=== PATIENT | male | born 1950 | race Caucasian/White ===

== ENCOUNTER 2022-11-12 13:15 | Emergency (ER) | payer MEDICARE ==
[~2022-11-12 13:15] MED LIST: Iopamidol-370 76% 500 ML MDV (1 ML CHARGE) ONE
[2022-11-12] MEDS ORDERED: Morphine 4 MG/ML VIAL ONE (14:01)
[2022-11-12] MEDS ORDERED: Ondansetron PF 4 MG/2 ML Vial ONE (14:01)
[2022-11-12 14:13] LABS: #Basophils 0.1 thou/uL (0.0-0.2); #Eosinphils 0.1 thou/uL (0.0-0.7); #Monocytes 0.6 thou/uL (0.11-0.59); #Neutrophils 5.7 thou/uL (1.40-6.50); %Basophils 0.7 % (0.0-1.0); %Eosinophils 0.9 % (0.0-10.0); %Lymphocytes 15.6 % (21.0-51.0); %Monocytes 7.8 % (0.0-10.0); %Neutrophils 74.7 % (42.0-75.0); Hemoglobin 14.2 g/dL (14.0-18.0); Mean Corpuscular HGB CONC 36.6 g/dL (32.0-36.0); Mean Corpuscular Hemoglobin 32.7 pg (27.0-31.0); Mean Corpuscular Volume 89.4 fl (78.0-98.0); Mean Platelet Volume 10.7 fL (7.4-10.4); Platelet Count 288 10x3/uL (130-400); RBC Distribution Width 19.5 % (11.5-14.5); Red Blood Cell (RBC) Count 4.34 mill/uL (4.70-6.10); White Blood Cell (WBC) Count 7.7 10x3/uL (4.8-10.8)
[2022-11-12 14:25] LABS: Bacteria/HPF None Seen HPF (None Seen); Bilirubin 3+ (Negative); Blood, Urine Negative (Negative); CAUTI Indications for Culture Pelvic or flank pain; Clarity Clear (Clear); Glucose, Urine (Dipstick) Normal (Negative); Ketone, Urine Negative (Negative); Leukocyte Negative Leu/uL (Negative); Nitrite Negative (Negative); Protein, Urine (Dipstick) 30 mg/dL (Neg-Trace); RBC/HPF 0-3 HPF (0-3); Squamous Epithelial None Seen HPF (0-3); pH, Urine 6.5 (5.0-9.0)
[2022-11-12 14:30] LABS: Urine Culture Reflex No No
[2022-11-12 14:33] LABS: ALT (SGPT) 173 U/L (8-55); AST (SGOT) 180 U/L (5-34); Alkaline Phosphatase 1169 U/L (40-110); Anion Gap 2 mmol/L (10-20); BUN (Urea Nitrogen) 8 mg/dL (8.4-25.7); Bilirubin, Total 14.8 mg/dL (0.2-1.2); Calc. Creatinine Clearance 0 mL/min (70-130); Calcium 9.9 mg/dL (7.8-10.44); Carbon Dioxide 28 mmol/L (23-31); Chloride 99 mmol/L (98-107); Estimated GFR 99; Globulin 2.7 g/dL (2.4-3.5); Glucose 123 mg/dL (80-115); Potassium 3.4 mmol/L (3.5-5.1); Protein, Total 6.7 g/dL (5.8-8.1); Sodium 126 mmol/L (136-145)
[2022-11-12 14:39] LABS: ALT (SGPT) 168 U/L (8-55); AST (SGOT) 175 U/L (5-34); Albumin 3.8 g/dL (3.4-4.8); Alkaline Phosphatase 1114 U/L (40-110); Bilirubin, Total 14.1 mg/dL (0.2-1.2); Lipase 254 U/L (8-78); Protein, Total 7.1 g/dL (5.8-8.1)
[2022-11-12 14:45] LABS: Actual Bicarbonate (HCO3v) 25.4 mEq/L (22-28); Base Excess 0.2 mEq/L (-2.0 to +3.0); Calcium, Ionized (venous) 1.11 mmol/L (1.16-1.32); Chloride (VBG) 100 mmol/L (98-106); Hematocrit-VBG 43 % (42.0-52.0); Hemoglobin (Hb) 14.6 g/dL (12.6-17.4); Potassium (VBG) 3.98 mmol/L (3.70-5.30); Sodium 136.9 mmol/L (133-146); pH (venous) 7.385 (7.32-7.43)
[2022-11-12] MEDS ORDERED: Cefepime 1 GM VIAL ONE (16:11)
[2022-11-12] MEDS ORDERED: metroNIDAZOLE 500 MG/100 ML BAG ONE (16:11)
[2022-11-12 16:54] LABS: Bilirubin, Direct Greater than 10.0 mg/dL (0.1-0.3)
[2022-11-12] MEDS ORDERED: hydrALAZINE 20 MG/ML VIAL ONE (17:58)
== END 2022-11-12 19:03 | disposition short-term general hospital (02) ==
LOC: ERS 13:15
DX: K86.9 Disease of pancreas, unspecified (principal); R63.4 Abnormal weight loss; K83.1 Obstruction of bile duct; Z87.891 Personal history of nicotine dependence
CPT/HCPCS: 71045; 74177; 80053; 80076; 81001; 82805; 83605; 83690; 84484; 85025; 87040; 93005; J0360; 36415; 96361; 96365; 96375; J0692; J2270; J2405; Q9967

== ENCOUNTER 2022-12-23 05:37 | Day surgery (SDC) | payer MEDICARE ==
[2022-12-22 10:15] VITALS: BMI 19.2
[2022-12-23] MEDS ORDERED: Ketorolac Tromethamine 30 MG/ML VIAL ONE (06:44)
[2022-12-23] MEDS ORDERED: Acetaminophen 500 MG TAB ONE (06:44)
[2022-12-23] MEDS ORDERED: Bupivacaine 0.25% HCL 30 ML VIAL ONE (07:01)
[2022-12-23] MEDS ORDERED: EPINEPHrine 1 MG/ML AMP ONE (07:01)
[2022-12-23] MEDS ORDERED: Lidocaine 1% (PF) 30 ML VIAL ONE (07:02)
[2022-12-23] MEDS ORDERED: Propofol 500 MG/50 ML VIAL ONE (07:18)
[2022-12-23] MEDS ORDERED: Sodium Chloride 0.9% 100 ML ONE (07:35)
[2022-12-23] MEDS ORDERED: CEFAZOLIN 2 GM VIAL ONE (07:35)
[2022-12-23] MEDS ORDERED: PROPOFOL 200 MG/20 ML VIAL ONE (07:46)
[2022-12-23] MEDS ORDERED: Lidocaine 1% PF 5 ML VIAL ONE (07:46)
[2022-12-23] MEDS ORDERED: ePHEDrine Sulfate 50 MG/10 ML VIAL ONE (07:46)
[2022-12-23] MEDS ORDERED: PHENYLEPHRINE-NS 100 MCG/ML 10 ML SYRINGE ONE (07:46)
== END 2022-12-23 10:00 | disposition home or self-care (01) ==
LOC: SDC 05:37
PROVIDERS: ATTEND Specialist
PROC: 0JH63WZ Insertion of Totally Implantable Vascular Access Device into Chest Subcutaneous Tissue and Fascia, Percutaneous Approach (ICD-10-PCS; principal; 2022-12-23)
DX: C25.9 Malignant neoplasm of pancreas, unspecified (principal); I10 Essential (primary) hypertension; I48.91 Unspecified atrial fibrillation; Z79.899 Other long term (current) drug therapy; Z87.891 Personal history of nicotine dependence; Z79.01 Long term (current) use of anticoagulants; Z88.0 Allergy status to penicillin
CPT/HCPCS: 71045; C1788; J0171; J1642; J1885; J2001; J2704; J3490; S0020

== ENCOUNTER 2023-01-22 08:46 | Inpatient (IN) | payer MEDICARE ==
[2023-01-22] MEDS ORDERED: Ondansetron PF 4 MG/2 ML Vial ONE (09:33)
[2023-01-22 09:59] LABS: Hematocrit 36.2 % (42.0-52.0); Hemoglobin 11.8 g/dL (14.0-18.0); Mean Corpuscular HGB CONC 32.6 g/dL (32.0-36.0); Mean Corpuscular Hemoglobin 31.1 pg (27.0-31.0); Mean Corpuscular Volume 95.3 fl (78.0-98.0); Mean Platelet Volume 10.5 fL (7.4-10.4); Platelet Count 250 10x3/uL (130-400); RBC Distribution Width 14.6 % (11.5-14.5); White Blood Cell (WBC) Count 15.8 10x3/uL (4.8-10.8)
[2023-01-22 10:26] LABS: Delete Auto Diff?? YES; Manual Diff?? YES; Troponin I Less than 0.010 ng/mL (< 0.028)
[2023-01-22] MEDS ORDERED: HYDROmorphone 0.5 MG/0.5 ML SYRINGE ONE ×2 (10:31→12:54)
[2023-01-22 10:32] LABS: ALT (SGPT) 12 U/L (8-55); AST (SGOT) 15 U/L (5-34); Alkaline Phosphatase 174 U/L (40-110); Anion Gap 18 mmol/L (10-20); BUN (Urea Nitrogen) 10 mg/dL (8.4-25.7); Bilirubin, Total 0.5 mg/dL (0.2-1.2); Calc. Creatinine Clearance 0 mL/min (70-130); Calcium 8.7 mg/dL (7.8-10.44); Carbon Dioxide 18 mmol/L (23-31); Chloride 106 mmol/L (98-107); Estimated GFR 106; Globulin 2.3 g/dL (2.4-3.5); Glucose 89 mg/dL (80-115); Lipase 32 U/L (8-78); Protein, Total 5.3 g/dL (5.8-8.1); Sodium 138 mmol/L (136-145)
[2023-01-22] MEDS ORDERED: Iopamidol-370 76% 500 ML MDV (1 ML CHARGE) ONE (10:53)
[2023-01-22 11:38] LABS: Band 2 % (5-11); Lymphocytes 14 % (21-51); Metamyelocyte 1 % (0-0); Monocytes 1 % (0-10); Neutrophil 81 % (42-75); Reactive Lymphocytes 1 % (0-10)
[2023-01-22 11:40] LABS: Large Platelets SLIGHT (None Seen)
[2023-01-22 11:41] LABS: Platelet Adequacy Comment Appears Adequate
[2023-01-22 11:42] LABS: Anisocytosis SLIGHT = 6-15 cells (100X) (0-5/hpf)
[2023-01-22 14:16] VITALS: BMI 17.8
[2023-01-22] MEDS ORDERED: Ondansetron PF 4 MG/2 ML Vial IVP PRN (14:23)
[2023-01-22] MEDS ORDERED: Acetaminophen 500 MG TAB PO PRN (14:23)
[2023-01-22] MEDS ORDERED: Ondansetron ODT 4 MG TAB PO PRN (14:23)
[2023-01-22] MEDS: Morphine 4 MG/ML VIAL SLOW IVP PRN ×2 (14:49→18:29)
[2023-01-22] MEDS: Sodium Chloride 0.9% 1,000 ML IV SCH (14:51)
[2023-01-22] MEDS: Famotidine 20 MG TAB PO SCH (20:14)
[2023-01-22 20:32] LABS: Bilirubin Negative (Negative); Blood, Urine Negative (Negative); Clarity Clear (Clear); Glucose, Urine (Dipstick) Normal (Negative); Ketone, Urine Negative (Negative); Leukocyte Negative Leu/uL (Negative); Nitrite Negative (Negative); Protein, Urine (Dipstick) 10 mg/dL (Neg-Trace); Specific Gravity, Urine 1.032 (1.002-1.036); Urobilinogen Normal mg/dL (Less than 2); pH, Urine 6.5 (5.0-9.0)
[2023-01-23] MEDS: Morphine 4 MG/ML VIAL SLOW IVP PRN ×4 (02:35→19:32)
[2023-01-23] MEDS: Sodium Chloride 0.9% 1,000 ML IV SCH ×2 (02:38→14:28)
[2023-01-23 05:54] LABS: Hematocrit 32.6 % (42.0-52.0); Hemoglobin 11.2 g/dL (14.0-18.0); Mean Corpuscular HGB CONC 34.4 g/dL (32.0-36.0); Mean Corpuscular Hemoglobin 30.9 pg (27.0-31.0); Mean Platelet Volume 10.3 fL (7.4-10.4); Platelet Count 281 10x3/uL (130-400); RBC Distribution Width 14.5 % (11.5-14.5); Red Blood Cell (RBC) Count 3.62 mill/uL (4.70-6.10); White Blood Cell (WBC) Count 20.1 10x3/uL (4.8-10.8)
[2023-01-23 06:10] LABS: Delete Auto Diff?? YES; Manual Diff?? YES; Mean Corpuscular Volume 90.1 fl (78.0-98.0)
[2023-01-23 06:26] LABS: ALT (SGPT) 8 U/L (8-55); AST (SGOT) 9 U/L (5-34); Albumin 2.4 g/dL (3.4-4.8); Alkaline Phosphatase 148 U/L (40-110); Anion Gap 13 mmol/L (10-20); BUN (Urea Nitrogen) 6 mg/dL (8.4-25.7); Bilirubin, Total 0.5 mg/dL (0.2-1.2); Calc. Creatinine Clearance 112 mL/min (70-130); Calcium 8.3 mg/dL (7.8-10.44); Carbon Dioxide 20 mmol/L (23-31); Chloride 107 mmol/L (98-107); Estimated GFR 110; Globulin 2.5 g/dL (2.4-3.5); Glucose 86 mg/dL (80-115); Potassium 3.3 mmol/L (3.5-5.1); Protein, Total 4.9 g/dL (5.8-8.1); Sodium 137 mmol/L (136-145)
[2023-01-23 07:17] LABS: Anisocytosis SLIGHT = 6-15 cells HPF (0-5); Band 21 % (5-11); CellaVision Operator ID LAB.JMM; Lymphocytes 7 % (21-51); Macrocytosis SLIGHT = 6-15 cells HPF (0-5); Monocytes 6 % (0-10); Neutrophil 65 % (42-75); Platelet Adequacy Comment Platelets Normal; Polychromasia SLIGHT = 2-3 cells HPF (0-2); Reactive Lymphocytes 1 % (0-10); Total Cell Count 100
[2023-01-23] MEDS: Famotidine 20 MG TAB PO SCH ×2 (08:27→20:32)
[2023-01-23 14:15] LABS: Actual Bicarbonate (HCO3v) 19.7 mEq/L (22-28); Chloride (VBG) 104 mmol/L (98-106); Hematocrit-VBG 40 % (42.0-52.0); Hemoglobin (Hb) 13.7 g/dL (12.6-17.4); Potassium (VBG) 3.35 mmol/L (3.70-5.30); Sodium 133 mmol/L (133-146); pH (venous) 7.451 (7.32-7.43)
[2023-01-23] MEDS: HYDROcodone/Acetaminophen 5/325 mg Tablet PO PRN (14:28)
[2023-01-23 15:51] LABS: SARS-CoV-2 NAA Rapid Test Not Detected (NotDetected)
[2023-01-23] MEDS: Mirtazapine 15 MG Soltab PO SCH (20:32)
[2023-01-24] MEDS: HYDROcodone/Acetaminophen 5/325 mg Tablet PO PRN ×3 (06:05→21:30)
[2023-01-24 06:38] LABS: Hematocrit 31.6 % (42.0-52.0); Hemoglobin 10.6 g/dL (14.0-18.0); Mean Corpuscular HGB CONC 33.5 g/dL (32.0-36.0); Mean Corpuscular Hemoglobin 30.7 pg (27.0-31.0); Mean Corpuscular Volume 91.6 fl (78.0-98.0); Mean Platelet Volume 10.1 fL (7.4-10.4); Platelet Count 292 10x3/uL (130-400); RBC Distribution Width 14.7 % (11.5-14.5); Red Blood Cell (RBC) Count 3.45 mill/uL (4.70-6.10); White Blood Cell (WBC) Count 24.5 10x3/uL (4.8-10.8)
[2023-01-24 06:41] LABS: Delete Auto Diff?? YES; Manual Diff?? YES
[2023-01-24 07:04] LABS: ALT (SGPT) 9 U/L (8-55); AST (SGOT) 19 U/L (5-34); Albumin 2.3 g/dL (3.4-4.8); Alkaline Phosphatase 179 U/L (40-110); Anion Gap 12 mmol/L (10-20); BUN (Urea Nitrogen) 8 mg/dL (8.4-25.7); Bilirubin, Total 0.5 mg/dL (0.2-1.2); Calc. Creatinine Clearance 99 mL/min (70-130); Calcium 8.4 mg/dL (7.8-10.44); Carbon Dioxide 22 mmol/L (23-31); Chloride 108 mmol/L (98-107); Estimated GFR 107; Globulin 2.6 g/dL (2.4-3.5); Glucose 96 mg/dL (80-115); Magnesium 1.7 mg/dL (1.6-2.6); Potassium 3.6 mmol/L (3.5-5.1); Protein, Total 4.9 g/dL (5.8-8.1); Sodium 138 mmol/L (136-145)
[2023-01-24 07:06] LABS: Anisocytosis SLIGHT = 6-15 cells HPF (0-5); Band 13 % (5-11); CellaVision Operator ID lab.dlt; Lymphocytes 8 % (21-51); Monocytes 7 % (0-10); Neutrophil 72 % (42-75); Platelet Adequacy Comment Platelets Normal; Poikilocytosis SLIGHT = 6-15 cells HPF (0-5); Polychromasia SLIGHT = 2-3 cells HPF (0-2); Total Cell Count 101
[2023-01-24] MEDS: Megestrol Acetate 800 MG/20 ML UDCUP PO SCH (08:16)
[2023-01-24] MEDS: Famotidine 20 MG TAB PO SCH (08:17)
[2023-01-24] MEDS: Morphine 4 MG/ML VIAL SLOW IVP PRN ×2 (08:18→15:32)
[2023-01-24] MEDS: Sodium Chloride 0.9% 1,000 ML IV SCH ×2 (08:22→21:27)
[2023-01-24] MEDS ORDERED: Magnesium 2 GM/50 ML(in water) 2 GM in Premix Bag 1 BAG IVPB SCH (10:15)
[2023-01-24] MEDS: cefTRIAXone\\ROCEPHIN 2 GM in Sodium Chloride 0.9% 100 ML IVPB SCH (11:51)
[2023-01-24] MEDS: Multivit, Therapeutic 1 TAB PO SCH (21:26)
[2023-01-24] MEDS: Cyanocobalamin (Vitamin B-12) 1,000 MCG TAB PO SCH (21:26)
[2023-01-24] MEDS: Senokot S 8.6-50 MG TAB PO SCH (21:26)
[2023-01-24] MEDS: Docusate 100 MG CAP PO SCH (21:26)
[2023-01-24] MEDS: Mirtazapine 15 MG Soltab PO SCH (21:26)
[2023-01-24] MEDS: Folic Acid 1 MG TAB PO SCH (21:26)
[2023-01-24] MEDS: metroNIDAZOLE 500 MG TAB PO SCH (21:26)
[2023-01-24] MEDS: Pantoprazole 40 MG VIAL IVP SCH (21:26)
[2023-01-24] MEDS: Heparin 5,000 UNITS/ML VIAL SC SCH (21:27)
[2023-01-25] MEDS: HYDROcodone/Acetaminophen 5/325 mg Tablet PO PRN ×3 (03:24→21:20)
[2023-01-25 06:28] LABS: Hematocrit 28.2 % (42.0-52.0); Hemoglobin 9.8 g/dL (14.0-18.0); Mean Corpuscular HGB CONC 34.8 g/dL (32.0-36.0); Mean Corpuscular Hemoglobin 31.3 pg (27.0-31.0); Mean Corpuscular Volume 90.1 fl (78.0-98.0); Platelet Count 277 10x3/uL (130-400); RBC Distribution Width 14.8 % (11.5-14.5); Red Blood Cell (RBC) Count 3.13 mill/uL (4.70-6.10); White Blood Cell (WBC) Count 24.2 10x3/uL (4.8-10.8)
[2023-01-25 06:50] LABS: Delete Auto Diff?? YES; Manual Diff?? YES
[2023-01-25 06:55] LABS: ALT (SGPT) 7 U/L (8-55); AST (SGOT) 14 U/L (5-34); Albumin 2.4 g/dL (3.4-4.8); Alkaline Phosphatase 196 U/L (40-110); Anion Gap 13 mmol/L (10-20); BUN (Urea Nitrogen) 8 mg/dL (8.4-25.7); Bilirubin, Total 0.5 mg/dL (0.2-1.2); Calc. Creatinine Clearance 116 mL/min (70-130); Calcium 7.8 mg/dL (7.8-10.44); Carbon Dioxide 18 mmol/L (23-31); Chloride 110 mmol/L (98-107); Estimated GFR 112; Globulin 2.3 g/dL (2.4-3.5); Glucose 91 mg/dL (80-115); Potassium 2.7 mmol/L (3.5-5.1); Protein, Total 4.7 g/dL (5.8-8.1); Sodium 138 mmol/L (136-145)
[2023-01-25] MEDS: Morphine 4 MG/ML VIAL SLOW IVP PRN ×2 (08:05→15:21)
[2023-01-25] MEDS: Pantoprazole 40 MG VIAL IVP SCH (08:05)
[2023-01-25] MEDS: Megestrol Acetate 800 MG/20 ML UDCUP PO SCH (08:06)
[2023-01-25] MEDS: metroNIDAZOLE 500 MG TAB PO SCH ×3 (08:07→21:21)
[2023-01-25] MEDS: Senokot S 8.6-50 MG TAB PO SCH ×2 (08:07→21:21)
[2023-01-25] MEDS: Heparin 5,000 UNITS/ML VIAL SC SCH ×2 (08:07→21:21)
[2023-01-25] MEDS: Docusate 100 MG CAP PO SCH ×2 (08:07→21:21)
[2023-01-25] MEDS ORDERED: Potassium Bicarbonate/Cit Ac 20 MEQ TAB PO SCH ×2 (09:00→13:00)
[2023-01-25] MEDS ORDERED: Potassium Chloride 20 MEQ in Lactated Ringer's 1,000 ML IV SCH ×3 (09:00→18:37)
[2023-01-25 09:02] LABS: Band 23 % (5-11); Eosinophils 1 % (0-10); Lymphocytes 2 % (21-51); Monocytes 1 % (0-10); Neutrophil 73 % (42-75); Polychromasia SLIGHT = 2-3 cells (100X) (0-2/hpf); Toxic Granulation MODERATE
[2023-01-25 09:03] LABS: Platelet Adequacy Comment Platelets Normal
[2023-01-25] MEDS: cefTRIAXone\\ROCEPHIN 2 GM in Sodium Chloride 0.9% 100 ML IVPB SCH (09:50)
[2023-01-25 18:22] LABS: Anion Gap 13 mmol/L (10-20); BUN (Urea Nitrogen) 6 mg/dL (8.4-25.7); Calc. Creatinine Clearance 114 mL/min (70-130); Calcium 8.1 mg/dL (7.8-10.44); Carbon Dioxide 19 mmol/L (23-31); Chloride 108 mmol/L (98-107); Estimated GFR 111; Glucose 86 mg/dL (80-115); Potassium 3.9 mmol/L (3.5-5.1); Sodium 136 mmol/L (136-145)
[2023-01-25] MEDS: Multivit, Therapeutic 1 TAB PO SCH (21:21)
[2023-01-25] MEDS: Cyanocobalamin (Vitamin B-12) 1,000 MCG TAB PO SCH (21:21)
[2023-01-25] MEDS: Folic Acid 1 MG TAB PO SCH (21:21)
[2023-01-25] MEDS: Mirtazapine 15 MG Soltab PO SCH (21:21)
[2023-01-25] MEDS: Chlorhexidine Gluconate 15 ML UDCUP SSP SCH (21:40)
[2023-01-26] MEDS: Morphine 4 MG/ML VIAL SLOW IVP PRN ×3 (02:26→15:17)
[2023-01-26 07:20] LABS: #Basophils 0.1 thou/uL (0.0-0.2); #Neutrophils 15.2 thou/uL (1.40-6.50); %Basophils 0.7 % (0.0-1.0); %Eosinophils 0.1 % (0.0-10.0); %Lymphocytes 7.6 % (21.0-51.0); %Monocytes 5.8 % (0.0-10.0); Hematocrit 33.5 % (42.0-52.0); Hemoglobin 11.1 g/dL (14.0-18.0); Mean Corpuscular HGB CONC 33.1 g/dL (32.0-36.0); Mean Corpuscular Hemoglobin 30.1 pg (27.0-31.0); Mean Corpuscular Volume 90.8 fl (78.0-98.0); Mean Platelet Volume 9.9 fL (7.4-10.4); Platelet Count 268 10x3/uL (130-400); Red Blood Cell (RBC) Count 3.69 mill/uL (4.70-6.10); White Blood Cell (WBC) Count 18.1 10x3/uL (4.8-10.8)
[2023-01-26 08:19] LABS: ALT (SGPT) 9 U/L (8-55); AST (SGOT) 14 U/L (5-34); Albumin 2.4 g/dL (3.4-4.8); Alkaline Phosphatase 175 U/L (40-110); Anion Gap 16 mmol/L (10-20); BUN (Urea Nitrogen) 6 mg/dL (8.4-25.7); Bilirubin, Total 0.6 mg/dL (0.2-1.2); Calc. Creatinine Clearance 133 mL/min (70-130); Calcium 7.6 mg/dL (7.8-10.44); Carbon Dioxide 19 mmol/L (23-31); Chloride 106 mmol/L (98-107); Estimated GFR 117; Glucose 64 mg/dL (80-115); Magnesium 1.8 mg/dL (1.6-2.6); Potassium 3.6 mmol/L (3.5-5.1); Protein, Total 4.4 g/dL (5.8-8.1); Sodium 137 mmol/L (136-145)
[2023-01-26 08:54] LABS: Phosphorus 2.8 mg/dL (2.3-4.7)
[2023-01-26] MEDS: Megestrol Acetate 800 MG/20 ML UDCUP PO SCH (09:20)
[2023-01-26] MEDS: Heparin 5,000 UNITS/ML VIAL SC SCH ×2 (09:20→20:25)
[2023-01-26] MEDS: Docusate 100 MG CAP PO SCH ×2 (09:21→20:24)
[2023-01-26] MEDS: metroNIDAZOLE 500 MG TAB PO SCH ×3 (09:21→20:24)
[2023-01-26] MEDS: Chlorhexidine Gluconate 15 ML UDCUP SSP SCH ×2 (09:21→20:25)
[2023-01-26] MEDS: Senokot S 8.6-50 MG TAB PO SCH ×2 (09:21→20:24)
[2023-01-26] MEDS: cefTRIAXone\\ROCEPHIN 2 GM in Sodium Chloride 0.9% 100 ML IVPB SCH (10:56)
[2023-01-26] MEDS: HYDROcodone/Acetaminophen 5/325 mg Tablet PO PRN ×2 (11:59→20:24)
[2023-01-26] MEDS ORDERED: Magnesium 2 GM/50 ML(in water) 2 GM in Premix Bag 1 BAG IVPB SCH (18:30)
[2023-01-26] MEDS: Mirtazapine 15 MG Soltab PO SCH (20:23)
[2023-01-26] MEDS: Cyanocobalamin (Vitamin B-12) 1,000 MCG TAB PO SCH (20:23)
[2023-01-26] MEDS: Multivit, Therapeutic 1 TAB PO SCH (20:23)
[2023-01-26] MEDS: Folic Acid 1 MG TAB PO SCH (20:23)
[2023-01-27] MEDS: Morphine 4 MG/ML VIAL SLOW IVP PRN ×3 (00:01→18:40)
[2023-01-27] MEDS: HYDROcodone/Acetaminophen 5/325 mg Tablet PO PRN ×3 (04:47→21:40)
[2023-01-27 05:41] LABS: #Basophils 0.1 thou/uL (0.0-0.2); #Monocytes 1.7 thou/uL (0.11-0.59); #Neutrophils 19.9 thou/uL (1.40-6.50); %Basophils 0.4 % (0.0-1.0); %Lymphocytes 6.5 % (21.0-51.0); %Monocytes 7.2 % (0.0-10.0); Hematocrit 32.7 % (42.0-52.0); Hemoglobin 11.4 g/dL (14.0-18.0); Mean Corpuscular HGB CONC 34.9 g/dL (32.0-36.0); Mean Corpuscular Hemoglobin 30.6 pg (27.0-31.0); Mean Platelet Volume 9.9 fL (7.4-10.4); Platelet Count 301 10x3/uL (130-400); RBC Distribution Width 14.9 % (11.5-14.5); Red Blood Cell (RBC) Count 3.73 mill/uL (4.70-6.10); White Blood Cell (WBC) Count 23.7 10x3/uL (4.8-10.8)
[2023-01-27 05:50] LABS: Mean Corpuscular Volume 87.7 fl (78.0-98.0)
[2023-01-27 06:14] LABS: ALT (SGPT) 8 U/L (8-55); AST (SGOT) 12 U/L (5-34); Albumin 2.7 g/dL (3.4-4.8); Alkaline Phosphatase 194 U/L (40-110); Anion Gap 16 mmol/L (10-20); BUN (Urea Nitrogen) 10 mg/dL (8.4-25.7); Bilirubin, Total 0.6 mg/dL (0.2-1.2); Calc. Creatinine Clearance 103 mL/min (70-130); Calcium 8.4 mg/dL (7.8-10.44); Carbon Dioxide 17 mmol/L (23-31); Chloride 104 mmol/L (98-107); Estimated GFR 108; Globulin 2.9 g/dL (2.4-3.5); Glucose 106 mg/dL (80-115); Magnesium 1.8 mg/dL (1.6-2.6); Phosphorus 3.3 mg/dL (2.3-4.7); Potassium 3.1 mmol/L (3.5-5.1); Protein, Total 5.6 g/dL (5.8-8.1); Sodium 134 mmol/L (136-145)
[2023-01-27] MEDS ORDERED: PROPOFOL 200 MG/20 ML VIAL ONE (08:51)
[2023-01-27] MEDS: cefTRIAXone\\ROCEPHIN 2 GM in Sodium Chloride 0.9% 100 ML IVPB SCH (10:40)
[2023-01-27] MEDS: Chlorhexidine Gluconate 15 ML UDCUP SSP SCH ×2 (10:42→21:40)
[2023-01-27] MEDS: Heparin 5,000 UNITS/ML VIAL SC SCH ×2 (10:42→21:43)
[2023-01-27] MEDS: metroNIDAZOLE 500 MG TAB PO SCH ×3 (10:42→21:39)
[2023-01-27] MEDS: Megestrol Acetate 800 MG/20 ML UDCUP PO SCH (10:43)
[2023-01-27] MEDS: Docusate 100 MG CAP PO SCH ×2 (12:31→21:39)
[2023-01-27] MEDS: Senokot S 8.6-50 MG TAB PO SCH ×2 (12:32→22:10)
[2023-01-27] MEDS: Multivit, Therapeutic 1 TAB PO SCH (21:39)
[2023-01-27] MEDS: Cyanocobalamin (Vitamin B-12) 1,000 MCG TAB PO SCH (21:40)
[2023-01-27] MEDS: Folic Acid 1 MG TAB PO SCH (21:40)
[2023-01-27] MEDS: Mirtazapine 15 MG Soltab PO SCH (21:43)
[2023-01-28] MEDS: Morphine 4 MG/ML VIAL SLOW IVP PRN ×2 (00:45→17:45)
[2023-01-28 05:36] LABS: #Basophils 0.1 thou/uL (0.0-0.2); #Monocytes 1.6 thou/uL (0.11-0.59); #Neutrophils 21.3 thou/uL (1.40-6.50); %Basophils 0.2 % (0.0-1.0); %Lymphocytes 5.8 % (21.0-51.0); %Monocytes 6.4 % (0.0-10.0); %Neutrophils 85.2 % (42.0-75.0); Hematocrit 31.4 % (42.0-52.0); Hemoglobin 10.5 g/dL (14.0-18.0); Mean Corpuscular HGB CONC 33.4 g/dL (32.0-36.0); Mean Corpuscular Hemoglobin 30.3 pg (27.0-31.0); Mean Platelet Volume 10.2 fL (7.4-10.4); Platelet Count 306 10x3/uL (130-400); RBC Distribution Width 15.3 % (11.5-14.5); Red Blood Cell (RBC) Count 3.46 mill/uL (4.70-6.10)
[2023-01-28] MEDS: HYDROcodone/Acetaminophen 5/325 mg Tablet PO PRN ×3 (05:37→21:46)
[2023-01-28 05:49] LABS: Mean Corpuscular Volume 90.8 fl (78.0-98.0)
[2023-01-28] MEDS ORDERED: Potassium Chloride 20 MEQ TAB PO SCH (06:00)
[2023-01-28] MEDS ORDERED: Electrolyte Replacement Protocol 1 EACH FS SCH (06:00)
[2023-01-28] MEDS ORDERED: Sodium Chloride 0.9% 500 ML IV SCH (06:00)
[2023-01-28] MEDS ORDERED: Magnesium 2 GM/50 ML(in water) 2 GM in Premix Bag 1 BAG IVPB SCH (06:00)
[2023-01-28 06:02] LABS: Phosphorus 3.1 mg/dL (2.3-4.7)
[2023-01-28 06:06] LABS: ALT (SGPT) 9 U/L (8-55); AST (SGOT) 11 U/L (5-34); Albumin 2.5 g/dL (3.4-4.8); Alkaline Phosphatase 162 U/L (40-110); Anion Gap 17 mmol/L (10-20); BUN (Urea Nitrogen) 11 mg/dL (8.4-25.7); Bilirubin, Total 0.7 mg/dL (0.2-1.2); Calc. Creatinine Clearance 103 mL/min (70-130); Calcium 8.4 mg/dL (7.8-10.44); Carbon Dioxide 18 mmol/L (23-31); Chloride 103 mmol/L (98-107); Estimated GFR 108; Globulin 2.8 g/dL (2.4-3.5); Glucose 93 mg/dL (80-115); Magnesium 1.8 mg/dL (1.6-2.6); Potassium 3.2 mmol/L (3.5-5.1); Protein, Total 5.3 g/dL (5.8-8.1); Sodium 135 mmol/L (136-145)
[2023-01-28] MEDS ORDERED: Metoprolol Tartrate 5 MG/5 ML VIAL IVP PRN (06:22)
[2023-01-28 06:26] LABS: Troponin I Less than 0.010 ng/mL (< 0.028)
[2023-01-28] MEDS: Megestrol Acetate 800 MG/20 ML UDCUP PO SCH (07:43)
[2023-01-28] MEDS: Chlorhexidine Gluconate 15 ML UDCUP SSP SCH ×2 (07:43→21:45)
[2023-01-28] MEDS: Senokot S 8.6-50 MG TAB PO SCH ×2 (07:44→21:45)
[2023-01-28] MEDS: metroNIDAZOLE 500 MG TAB PO SCH ×3 (07:44→21:45)
[2023-01-28] MEDS: Docusate 100 MG CAP PO SCH ×2 (07:44→21:45)
[2023-01-28] MEDS: cefTRIAXone\\ROCEPHIN 2 GM in Sodium Chloride 0.9% 100 ML IVPB SCH (12:20)
[2023-01-28] MEDS: dilTIAZem 125 MG in Sodium Chloride 0.9% 100 ML IVPB SCH (12:32)
[2023-01-28] MEDS: Dronedarone HCl 400 MG TAB PO SCH (17:42)
[2023-01-28] MEDS: Multivit, Therapeutic 1 TAB PO SCH (21:45)
[2023-01-28] MEDS: Mirtazapine 15 MG Soltab PO SCH (21:45)
[2023-01-28] MEDS: Folic Acid 1 MG TAB PO SCH (21:45)
[2023-01-28] MEDS: Cyanocobalamin (Vitamin B-12) 1,000 MCG TAB PO SCH (21:45)
[2023-01-29 04:45] LABS: #Basophils 0.1 thou/uL (0.0-0.2); #Monocytes 1.9 thou/uL (0.11-0.59); #Neutrophils 20.5 thou/uL (1.40-6.50); %Basophils 0.2 % (0.0-1.0); %Lymphocytes 6.7 % (21.0-51.0); %Monocytes 7.6 % (0.0-10.0); %Neutrophils 84.1 % (42.0-75.0); Hematocrit 29.8 % (42.0-52.0); Hemoglobin 10.1 g/dL (14.0-18.0); Mean Corpuscular HGB CONC 33.9 g/dL (32.0-36.0); Mean Corpuscular Hemoglobin 30.5 pg (27.0-31.0); Mean Platelet Volume 10.2 fL (7.4-10.4); Platelet Count 339 10x3/uL (130-400); RBC Distribution Width 15.5 % (11.5-14.5); Red Blood Cell (RBC) Count 3.31 mill/uL (4.70-6.10); White Blood Cell (WBC) Count 24.4 10x3/uL (4.8-10.8)
[2023-01-29 05:10] LABS: ALT (SGPT) 9 U/L (8-55); AST (SGOT) 9 U/L (5-34); Albumin 2.4 g/dL (3.4-4.8); Alkaline Phosphatase 149 U/L (40-110); Anion Gap 19 mmol/L (10-20); BUN (Urea Nitrogen) 12 mg/dL (8.4-25.7); Bilirubin, Total 0.6 mg/dL (0.2-1.2); Calc. Creatinine Clearance 104 mL/min (70-130); Calcium 8.2 mg/dL (7.8-10.44); Carbon Dioxide 15 mmol/L (23-31); Chloride 105 mmol/L (98-107); Estimated GFR 108; Globulin 2.8 g/dL (2.4-3.5); Glucose 102 mg/dL (83-110); Magnesium 1.9 mg/dL (1.6-2.6); Potassium 3.4 mmol/L (3.5-5.1); Protein, Total 5.2 g/dL (5.8-8.1); Sodium 136 mmol/L (136-145)
[2023-01-29] MEDS: HYDROcodone/Acetaminophen 5/325 mg Tablet PO PRN ×2 (06:50→13:05)
[2023-01-29] MEDS ORDERED: Magnesium 2 GM/50 ML(in water) 2 GM in Premix Bag 1 BAG IVPB SCH (08:00)
[2023-01-29] MEDS: Megestrol Acetate 800 MG/20 ML UDCUP PO SCH (08:06)
[2023-01-29] MEDS: Chlorhexidine Gluconate 15 ML UDCUP SSP SCH ×2 (08:06→20:32)
[2023-01-29] MEDS: metroNIDAZOLE 500 MG TAB PO SCH ×3 (08:07→20:32)
[2023-01-29] MEDS: Dronedarone HCl 400 MG TAB PO SCH ×2 (08:07→15:25)
[2023-01-29] MEDS: Senokot S 8.6-50 MG TAB PO SCH ×2 (08:07→20:31)
[2023-01-29] MEDS: Morphine 4 MG/ML VIAL SLOW IVP PRN (08:07)
[2023-01-29] MEDS: Docusate 100 MG CAP PO SCH (08:21)
[2023-01-29] MEDS: Potassium Chloride 20 MEQ in Premix Bag 1 BAG IVPB SCH ×2 (10:08→13:05)
[2023-01-29] MEDS: cefTRIAXone\\ROCEPHIN 2 GM in Sodium Chloride 0.9% 100 ML IVPB SCH (15:26)
[2023-01-29] MEDS: HYDROcodone/Acetaminophen 10/325 mg Tablet PO PRN ×2 (17:22→20:30)
[2023-01-29] MEDS: Cyanocobalamin (Vitamin B-12) 1,000 MCG TAB PO SCH (20:30)
[2023-01-29] MEDS: Mirtazapine 15 MG Soltab PO SCH (20:30)
[2023-01-29] MEDS: Folic Acid 1 MG TAB PO SCH (20:31)
[2023-01-29] MEDS: Multivit, Therapeutic 1 TAB PO SCH (20:31)
[2023-01-29] MEDS ORDERED: Morphine ER 15 MG TAB PO SCH (21:00)
[2023-01-30] MEDS: HYDROcodone/Acetaminophen 10/325 mg Tablet PO PRN ×5 (00:42→22:01)
[2023-01-30 04:33] LABS: #Basophils 0.1 thou/uL (0.0-0.2); #Monocytes 1.5 thou/uL (0.11-0.59); #Neutrophils 17.4 thou/uL (1.40-6.50); %Basophils 0.2 % (0.0-1.0); %Eosinophils 0.1 % (0.0-10.0); %Monocytes 7.3 % (0.0-10.0); Hematocrit 28.2 % (42.0-52.0); Hemoglobin 9.5 g/dL (14.0-18.0); Mean Corpuscular HGB CONC 33.7 g/dL (32.0-36.0); Mean Corpuscular Hemoglobin 30.3 pg (27.0-31.0); Mean Corpuscular Volume 89.8 fl (78.0-98.0); Mean Platelet Volume 9.9 fL (7.4-10.4); Platelet Count 360 10x3/uL (130-400); RBC Distribution Width 15.7 % (11.5-14.5); Red Blood Cell (RBC) Count 3.14 mill/uL (4.70-6.10); White Blood Cell (WBC) Count 20.7 10x3/uL (4.8-10.8)
[2023-01-30 04:56] LABS: ALT (SGPT) 8 U/L (8-55); AST (SGOT) 9 U/L (5-34); Albumin 2.4 g/dL (3.4-4.8); Alkaline Phosphatase 125 U/L (40-110); Anion Gap 15 mmol/L (10-20); BUN (Urea Nitrogen) 14 mg/dL (8.4-25.7); Bilirubin, Total 0.5 mg/dL (0.2-1.2); Calc. Creatinine Clearance 90 mL/min (70-130); Calcium 8.3 mg/dL (7.8-10.44); Carbon Dioxide 20 mmol/L (23-31); Chloride 106 mmol/L (98-107); Estimated GFR 103; Globulin 2.9 g/dL (2.4-3.5); Glucose 130 mg/dL (83-110); Protein, Total 5.3 g/dL (5.8-8.1); Sodium 137 mmol/L (136-145)
[2023-01-30] MEDS ORDERED: Magnesium 2 GM/50 ML(in water) 2 GM in Premix Bag 1 BAG IVPB SCH (08:00)
[2023-01-30] MEDS: Dronedarone HCl 400 MG TAB PO SCH ×2 (09:13→16:18)
[2023-01-30] MEDS: Megestrol Acetate 800 MG/20 ML UDCUP PO SCH (09:13)
[2023-01-30] MEDS: Chlorhexidine Gluconate 15 ML UDCUP SSP SCH ×2 (09:13→21:28)
[2023-01-30] MEDS: cefTRIAXone\\ROCEPHIN 2 GM in Sodium Chloride 0.9% 100 ML IVPB SCH (09:13)
[2023-01-30] MEDS: Senokot S 8.6-50 MG TAB PO SCH ×2 (09:13→21:28)
[2023-01-30] MEDS: metroNIDAZOLE 500 MG TAB PO SCH ×3 (09:13→21:28)
[2023-01-30] MEDS: Cyanocobalamin (Vitamin B-12) 1,000 MCG TAB PO SCH (21:28)
[2023-01-30] MEDS: Folic Acid 1 MG TAB PO SCH (21:28)
[2023-01-30] MEDS: Mirtazapine 15 MG Soltab PO SCH (21:28)
[2023-01-30] MEDS: Multivit, Therapeutic 1 TAB PO SCH (21:28)
[2023-01-31] MEDS: HYDROcodone/Acetaminophen 10/325 mg Tablet PO PRN ×2 (06:35→15:44)
[2023-01-31 09:12] LABS: #Monocytes 1.2 thou/uL (0.11-0.59); #Neutrophils 15.6 thou/uL (1.40-6.50); %Basophils 0.2 % (0.0-1.0); %Lymphocytes 6.7 % (21.0-51.0); %Monocytes 6.7 % (0.0-10.0); %Neutrophils 85.4 % (42.0-75.0); Hematocrit 27.7 % (42.0-52.0); Hemoglobin 9.4 g/dL (14.0-18.0); Mean Corpuscular HGB CONC 33.9 g/dL (32.0-36.0); Mean Corpuscular Hemoglobin 30.5 pg (27.0-31.0); Mean Corpuscular Volume 89.9 fl (78.0-98.0); Mean Platelet Volume 10.2 fL (7.4-10.4); Platelet Count 384 10x3/uL (130-400); RBC Distribution Width 16.2 % (11.5-14.5); Red Blood Cell (RBC) Count 3.08 mill/uL (4.70-6.10); White Blood Cell (WBC) Count 18.3 10x3/uL (4.8-10.8)
[2023-01-31] MEDS ORDERED: Iopamidol 370 76% 100 ML VIAL ONE (09:24)
[2023-01-31] MEDS: Senokot S 8.6-50 MG TAB PO SCH ×2 (09:36→20:38)
[2023-01-31] MEDS: metroNIDAZOLE 500 MG TAB PO SCH ×3 (09:37→20:37)
[2023-01-31] MEDS: Chlorhexidine Gluconate 15 ML UDCUP SSP SCH ×2 (09:37→20:36)
[2023-01-31] MEDS: Megestrol Acetate 800 MG/20 ML UDCUP PO SCH (09:37)
[2023-01-31] MEDS: cefTRIAXone\\ROCEPHIN 2 GM in Sodium Chloride 0.9% 100 ML IVPB SCH (09:38)
[2023-01-31] MEDS: Dronedarone HCl 400 MG TAB PO SCH ×2 (09:42→17:07)
[2023-01-31] MEDS: Morphine ER 30 MG TAB PO SCH ×2 (12:43→20:37)
[2023-01-31] MEDS ORDERED: fentaNYL 50 mcg/hour Patch TD SCH (15:00)
[2023-01-31] MEDS: dilTIAZem 125 MG in Sodium Chloride 0.9% 100 ML IVPB SCH (17:15)
[2023-01-31] MEDS: Folic Acid 1 MG TAB PO SCH (20:37)
[2023-01-31] MEDS: Cyanocobalamin (Vitamin B-12) 1,000 MCG TAB PO SCH (20:37)
[2023-01-31] MEDS: Mirtazapine 15 MG Soltab PO SCH (20:37)
[2023-01-31] MEDS: Multivit, Therapeutic 1 TAB PO SCH (20:38)
[2023-02-01] MEDS: HYDROcodone/Acetaminophen 10/325 mg Tablet PO PRN ×2 (05:37→15:05)
[2023-02-01 06:29] LABS: #Monocytes 1.1 thou/uL (0.11-0.59); #Neutrophils 19.4 thou/uL (1.40-6.50); %Basophils 0.2 % (0.0-1.0); %Lymphocytes 6.3 % (21.0-51.0); %Neutrophils 87.3 % (42.0-75.0); Hematocrit 27.7 % (42.0-52.0); Hemoglobin 9.4 g/dL (14.0-18.0); Mean Corpuscular HGB CONC 33.9 g/dL (32.0-36.0); Mean Corpuscular Hemoglobin 30.6 pg (27.0-31.0); Mean Corpuscular Volume 90.2 fl (78.0-98.0); Mean Platelet Volume 10.8 fL (7.4-10.4); Platelet Count 442 10x3/uL (130-400); RBC Distribution Width 16.7 % (11.5-14.5); Red Blood Cell (RBC) Count 3.07 mill/uL (4.70-6.10); White Blood Cell (WBC) Count 22.2 10x3/uL (4.8-10.8)
[2023-02-01 07:08] LABS: Anion Gap 13 mmol/L (10-20); BUN (Urea Nitrogen) 11 mg/dL (8.4-25.7); Calc. Creatinine Clearance 98 mL/min (70-130); Calcium 8.1 mg/dL (7.8-10.44); Carbon Dioxide 19 mmol/L (23-31); Chloride 107 mmol/L (98-107); Estimated GFR 106; Glucose 105 mg/dL (83-110); Potassium 3.4 mmol/L (3.5-5.1); Sodium 136 mmol/L (136-145)
[2023-02-01] MEDS ORDERED: Potassium Chloride 20 MEQ TAB PO SCH (08:00)
[2023-02-01] MEDS: Chlorhexidine Gluconate 15 ML UDCUP SSP SCH ×2 (08:52→20:30)
[2023-02-01] MEDS: Megestrol Acetate 800 MG/20 ML UDCUP PO SCH (08:53)
[2023-02-01] MEDS: Dronedarone HCl 400 MG TAB PO SCH ×2 (08:53→17:35)
[2023-02-01] MEDS: Senokot S 8.6-50 MG TAB PO SCH ×2 (08:53→20:32)
[2023-02-01] MEDS: Morphine ER 30 MG TAB PO SCH ×2 (08:53→20:31)
[2023-02-01] MEDS: metroNIDAZOLE 500 MG TAB PO SCH ×3 (08:53→20:31)
[2023-02-01] MEDS: cefTRIAXone\\ROCEPHIN 2 GM in Sodium Chloride 0.9% 100 ML IVPB SCH (09:01)
[2023-02-01] MEDS: dilTIAZem 125 MG in Sodium Chloride 0.9% 100 ML IVPB SCH (16:31)
[2023-02-01] MEDS: Cyanocobalamin (Vitamin B-12) 1,000 MCG TAB PO SCH (20:30)
[2023-02-01] MEDS: Folic Acid 1 MG TAB PO SCH (20:30)
[2023-02-01] MEDS: Mirtazapine 15 MG Soltab PO SCH (20:31)
[2023-02-01] MEDS: Multivit, Therapeutic 1 TAB PO SCH (20:32)
[2023-02-02 09:43] VITALS: TEMP 98.3
[2023-02-02] MEDS: Megestrol Acetate 800 MG/20 ML UDCUP PO SCH (09:51)
[2023-02-02] MEDS: Chlorhexidine Gluconate 15 ML UDCUP SSP SCH (09:51)
[2023-02-02] MEDS: Morphine ER 30 MG TAB PO SCH (09:51)
[2023-02-02] MEDS: cefTRIAXone\\ROCEPHIN 2 GM in Sodium Chloride 0.9% 100 ML IVPB SCH (09:52)
[2023-02-02] MEDS: metroNIDAZOLE 500 MG TAB PO SCH (09:52)
[2023-02-02] MEDS: Dronedarone HCl 400 MG TAB PO SCH (09:52)
[2023-02-02] MEDS: Senokot S 8.6-50 MG TAB PO SCH (09:53)
[2023-02-02 13:34] VITALS: BP 146/85
== END 2023-02-02 15:51 | DRG 871 ==
LOC: ERS 08:46 → T4-B 12:29 → 2NO 01-28 07:08
PROVIDERS: ADMIT Family Medicine; ATTEND Hospitalist
PROC: 3E03329 Introduction of Other Anti-infective into Peripheral Vein, Percutaneous Approach (ICD-10-PCS; 2023-01-24)
PROC: B24BZZ4 Ultrasonography of Heart with Aorta, Transesophageal (ICD-10-PCS; 2023-01-27)
PROC: 02HV33Z Insertion of Infusion Device into Superior Vena Cava, Percutaneous Approach (ICD-10-PCS; principal; 2023-01-31)
PROC: B5181ZA Fluoroscopy of Superior Vena Cava using Low Osmolar Contrast, Guidance (ICD-10-PCS; 2023-01-31)
PROC: B548ZZA Ultrasonography of Superior Vena Cava, Guidance (ICD-10-PCS; 2023-01-31)
DX: A40.9 Streptococcal sepsis, unspecified (principal); E43 Unspecified severe protein-calorie malnutrition; I81 Portal vein thrombosis; I33.0 Acute and subacute infective endocarditis; K55.059 Acute (reversible) ischemia of intestine, part and extent unspecified; C25.9 Malignant neoplasm of pancreas, unspecified; C77.2 Secondary and unspecified malignant neoplasm of intra-abdominal lymph nodes; I47.19 Other supraventricular tachycardia; D84.9 Immunodeficiency, unspecified; I31.39 Other pericardial effusion (noninflammatory); Z68.1 Body mass index [BMI] 19.9 or less, adult; I82.890 Acute embolism and thrombosis of other specified veins; Z51.5 Encounter for palliative care; R65.20 Severe sepsis without septic shock; H40.9 Unspecified glaucoma; I10 Essential (primary) hypertension; I48.91 Unspecified atrial fibrillation; E87.6 Hypokalemia; E83.42 Hypomagnesemia; D64.9 Anemia, unspecified; Z66 Do not resuscitate; I05.9 Rheumatic mitral valve disease, unspecified; I35.8 Other nonrheumatic aortic valve disorders; Z88.0 Allergy status to penicillin; Z79.899 Other long term (current) drug therapy; Z98.890 Other specified postprocedural states; Z87.891 Personal history of nicotine dependence; Z82.49 Family history of ischemic heart disease and other diseases of the circulatory system; Z20.822 Contact with and (suspected) exposure to COVID-19
CPT/HCPCS: 36415; 36569; 70450; 71045; 71046; 74177; 80048; 80053; 81003; 82805; 83605; 83690; 83735; 84100; 84484; 85025; 86140; 86850; 86900; 86901; 87040; 87077; 87149; 87186; 93005; 93010; 93306; 93312; 96361; 96374; 96375; 96376; C1751; C9113; J0696; J1170; J1644; J1650; J2270; J2405; J2704; J3475; J3480; J3490; J7030; J7050; J7120; Q9967

== ENCOUNTER 2023-02-24 23:44 | Inpatient (IN) | payer MEDICARE ==
[2023-02-25] MEDS ORDERED: Pantoprazole 40 MG VIAL ONE (00:07)
[2023-02-25] MEDS ORDERED: Ondansetron PF 4 MG/2 ML Vial ONE ×2 (00:07→13:31)
[2023-02-25] MEDS ORDERED: Morphine 4 MG/ML VIAL ONE (00:14)
[2023-02-25 00:49] LABS: #Monocytes 0.5 thou/uL (0.11-0.59); #Neutrophils 15.1 thou/uL (1.40-6.50); %Basophils 0.2 % (0.0-1.0); %Eosinophils 0.1 % (0.0-10.0); %Lymphocytes 4.1 % (21.0-51.0); %Monocytes 3.1 % (0.0-10.0); %Neutrophils 92.1 % (42.0-75.0); Hemoglobin 8.7 g/dL (14.0-18.0); Mean Corpuscular Hemoglobin 29.4 pg (27.0-31.0); Mean Platelet Volume 9.7 fL (7.4-10.4); Platelet Count 372 10x3/uL (130-400); RBC Distribution Width 21.2 % (11.5-14.5); Red Blood Cell (RBC) Count 2.96 mill/uL (4.70-6.10); White Blood Cell (WBC) Count 16.4 10x3/uL (4.8-10.8)
[2023-02-25 01:15] LABS: ALT (SGPT) 10 U/L (8-55); AST (SGOT) 18 U/L (5-34); Albumin 2.2 g/dL (3.4-4.8); Alkaline Phosphatase 96 U/L (40-110); Anion Gap 18 mmol/L (10-20); BUN (Urea Nitrogen) 12 mg/dL (8.4-25.7); Bilirubin, Total 0.3 mg/dL (0.2-1.2); Calc. Creatinine Clearance 0 mL/min (70-130); Calcium 7.8 mg/dL (7.8-10.44); Carbon Dioxide 23 mmol/L (23-31); Chloride 104 mmol/L (98-107); Estimated GFR 108; Glucose 125 mg/dL (83-110); Lipase 44 U/L (8-78); Potassium 3.6 mmol/L (3.5-5.1); Protein, Total 6.2 g/dL (5.8-8.1); Sodium 141 mmol/L (136-145)
[2023-02-25 01:17] LABS: Troponin I Less than 0.010 ng/mL (< 0.028)
[2023-02-25] MEDS ORDERED: Morphine 4 MG/ML VIAL SLOW IVP PRN (02:54)
[2023-02-25] MEDS ORDERED: Ondansetron ODT 4 MG TAB PO PRN (02:59)
[2023-02-25] MEDS ORDERED: Acetaminophen 325 MG TAB PO PRN (02:59)
[2023-02-25] MEDS ORDERED: Ondansetron PF 4 MG/2 ML Vial IVP PRN (03:00)
[2023-02-25] MEDS ORDERED: D5 1/2 NS w/20 mEq KCL 1,000 ML IV SCH (03:00)
[2023-02-25] MEDS ORDERED: Ondansetron ODT 4 MG TAB SL PRN (03:00)
[2023-02-25] MEDS ORDERED: Sodium Chloride 0.9% 1,000 ML IV SCH (03:15)
[2023-02-25] MEDS ORDERED: Pantoprazole 40 MG VIAL IVP SCH ×2 (03:30→09:00)
[2023-02-25 03:34] LABS: #Monocytes 0.5 thou/uL (0.11-0.59); %Basophils 0.1 % (0.0-1.0); %Eosinophils 0.1 % (0.0-10.0); %Monocytes 3.3 % (0.0-10.0); %Neutrophils 91.1 % (42.0-75.0); Hematocrit 27.1 % (42.0-52.0); Hemoglobin 8.2 g/dL (14.0-18.0); Mean Corpuscular HGB CONC 30.3 g/dL (32.0-36.0); Mean Corpuscular Hemoglobin 29.9 pg (27.0-31.0); Mean Corpuscular Volume 98.9 fl (78.0-98.0); Mean Platelet Volume 9.4 fL (7.4-10.4); Platelet Count 345 10x3/uL (130-400); RBC Distribution Width 21.4 % (11.5-14.5); Red Blood Cell (RBC) Count 2.74 mill/uL (4.70-6.10); White Blood Cell (WBC) Count 14.3 10x3/uL (4.8-10.8)
[2023-02-25 03:55] LABS: ALT (SGPT) 8 U/L (8-55); AST (SGOT) 19 U/L (5-34); Albumin 2.3 g/dL (3.4-4.8); Alkaline Phosphatase 91 U/L (40-110); Anion Gap 15 mmol/L (10-20); BUN (Urea Nitrogen) 12 mg/dL (8.4-25.7); Bilirubin, Total 0.4 mg/dL (0.2-1.2); Calc. Creatinine Clearance 0 mL/min (70-130); Calcium 7.8 mg/dL (7.8-10.44); Carbon Dioxide 23 mmol/L (23-31); Chloride 105 mmol/L (98-107); Estimated GFR 110; Globulin 3.7 g/dL (2.4-3.5); Glucose 118 mg/dL (83-110); Potassium 3.4 mmol/L (3.5-5.1); Sodium 140 mmol/L (136-145)
[2023-02-25 04:23] LABS: Bilirubin Negative (Negative); Blood, Urine Trace (Negative); Clarity Clear (Clear); Glucose, Urine (Dipstick) Normal (Negative); Ketone, Urine 10 mg/dL (Negative); Leukocyte Negative Leu/uL (Negative); Nitrite Negative (Negative); Protein, Urine (Dipstick) 70 mg/dL (Neg-Trace); Urobilinogen Normal mg/dL (Less than 2)
[2023-02-25 04:37] LABS: Bacteria/HPF Rare-Few HPF (None Seen); CAUTI Indications for Culture Dysuria,urgency,freq; Squamous Epithelial None Seen HPF (0-3); WBC/HPF 0-3 HPF (0-3)
[2023-02-25 04:38] LABS: Urine Culture Reflex No No
[2023-02-25 05:25] VITALS: BMI 20.9
[2023-02-25] MEDS ORDERED: Morphine ER 15 MG TAB PO SCH (09:00)
[2023-02-25] MEDS: Potassium Chloride 20 MEQ in Premix 1 BAG IVPB SCH ×2 (09:03→12:07)
[2023-02-25] MEDS: Pantoprazole 40 MG VIAL IVP SCH ×2 (09:03→20:23)
[2023-02-25] MEDS: cefTRIAXone\\ROCEPHIN 2 GM in Sodium Chloride 0.9% 100 ML IVPB SCH (09:03)
[2023-02-25] MEDS ORDERED: cefTRIAXone (ROCEPHIN) 2 GM VIAL IVPB SCH (10:00)
[2023-02-25] MEDS ORDERED: Furosemide 40 MG/4 ML VIAL SLOW IVP SCH (13:00)
[2023-02-25] MEDS ORDERED: Midazolam HCl 2 mg/2 ml Vial ONE (13:18)
[2023-02-25] MEDS ORDERED: fentaNYL 50 mcg/mL 1 mL Vial ONE (13:19)
[2023-02-25] MEDS: D5 0.9% NS w/ 20 mEq KCl 1,000 ML IV SCH (13:24)
[2023-02-25] MEDS ORDERED: PROPOFOL 200 MG/20 ML VIAL ONE (13:31)
[2023-02-25] MEDS ORDERED: PHENYLEPHRINE-NS 100 MCG/ML 10 ML SYRINGE ONE (13:31)
[2023-02-25] MEDS ORDERED: Succinylcholine 200 MG/10 ml SYRINGE FS ONE (13:31)
[2023-02-25] MEDS ORDERED: Iopamidol-370 76% 500 ML MDV (1 ML CHARGE) ONE (13:54)
[2023-02-25] MEDS: dilTIAZem 30 MG TAB PO SCH ×2 (14:30→20:22)
[2023-02-25 16:51] LABS: Hematocrit 27.8 % (42.0-52.0); Hemoglobin 8.4 g/dL (14.0-18.0)
[2023-02-25] MEDS: Dronedarone HCl 400 MG TAB PO SCH (17:50)
[2023-02-25] MEDS: Mirtazapine 15 MG Soltab PO SCH (20:22)
[2023-02-25] MEDS: Morphine ER 15 MG TAB PO SCH (20:22)
[2023-02-26] MEDS: D5 0.9% NS w/ 20 mEq KCl 1,000 ML IV SCH (00:38)
[2023-02-26 06:52] LABS: #Eosinphils 0.2 thou/uL (0.0-0.7); #Monocytes 0.6 thou/uL (0.11-0.59); #Neutrophils 8.6 thou/uL (1.40-6.50); %Basophils 0.4 % (0.0-1.0); %Eosinophils 1.9 % (0.0-10.0); %Lymphocytes 9.9 % (21.0-51.0); %Neutrophils 81.6 % (42.0-75.0); Hematocrit 22.6 % (42.0-52.0); Hemoglobin 6.7 g/dL (14.0-18.0); Mean Corpuscular HGB CONC 29.6 g/dL (32.0-36.0); Mean Corpuscular Hemoglobin 29.3 pg (27.0-31.0); Mean Corpuscular Volume 98.7 fl (78.0-98.0); Mean Platelet Volume 9.7 fL (7.4-10.4); Platelet Count 301 10x3/uL (130-400); RBC Distribution Width 21.2 % (11.5-14.5); Red Blood Cell (RBC) Count 2.29 mill/uL (4.70-6.10); White Blood Cell (WBC) Count 10.5 10x3/uL (4.8-10.8)
[2023-02-26 07:04] LABS: INR-International Normal Ratio 2.6; Prothrombin Time 28.9 sec (12.0-14.7)
[2023-02-26 07:29] LABS: Anion Gap 8 mmol/L (10-20); BUN (Urea Nitrogen) 7 mg/dL (8.4-25.7); Calc. Creatinine Clearance 151 mL/min (70-130); Calcium 7.5 mg/dL (7.8-10.44); Carbon Dioxide 26 mmol/L (23-31); Chloride 108 mmol/L (98-107); Estimated GFR 115; Glucose 86 mg/dL (83-110); Potassium 3.4 mmol/L (3.5-5.1); Sodium 139 mmol/L (136-145)
[2023-02-26] MEDS ORDERED: Furosemide 40 MG/4 ML VIAL SLOW IVP SCH ×2 (09:00→14:30)
[2023-02-26] MEDS: cefTRIAXone\\ROCEPHIN 2 GM in Sodium Chloride 0.9% 100 ML IVPB SCH (09:24)
[2023-02-26] MEDS: Dronedarone HCl 400 MG TAB PO SCH ×2 (09:25→17:32)
[2023-02-26] MEDS: dilTIAZem 30 MG TAB PO SCH ×3 (09:25→21:09)
[2023-02-26] MEDS: Morphine ER 15 MG TAB PO SCH ×2 (09:25→21:09)
[2023-02-26] MEDS: Pantoprazole 40 MG VIAL IVP SCH ×2 (09:26→21:10)
[2023-02-26] MEDS ORDERED: Furosemide 40 MG/4 ML VIAL IVP SCH (11:15)
[2023-02-26] MEDS ORDERED: Electrolyte Replacement Protocol FS PRN (11:30)
[2023-02-26] MEDS ORDERED: Potassium Chloride 20 MEQ TAB PO SCH (12:30)
[2023-02-26] MEDS ORDERED: Furosemide 20 MG/2 ML VIAL SLOW IVP SCH (14:30)
[2023-02-26] MEDS: HYDROcodone/Acetaminophen 5/325 mg Tablet PO PRN (16:06)
[2023-02-26 19:25] LABS: Hematocrit 31.1 % (42.0-52.0); Platelet Count 275 10x3/uL (130-400)
[2023-02-26] MEDS: Mirtazapine 15 MG Soltab PO SCH (21:10)
[2023-02-27] MEDS: D5 0.9% NS w/ 20 mEq KCl 1,000 ML IV SCH (03:26)
[2023-02-27] MEDS: Furosemide 40 MG/4 ML VIAL SLOW IVP SCH (05:21)
[2023-02-27 09:07] LABS: #Eosinphils 0.1 thou/uL (0.0-0.7); #Monocytes 0.6 thou/uL (0.11-0.59); #Neutrophils 10.3 thou/uL (1.40-6.50); %Basophils 0.3 % (0.0-1.0); %Eosinophils 1.1 % (0.0-10.0); %Lymphocytes 5.7 % (21.0-51.0); %Monocytes 4.8 % (0.0-10.0); %Neutrophils 87.6 % (42.0-75.0); Hematocrit 33.6 % (42.0-52.0); Hemoglobin 10.6 g/dL (14.0-18.0); Mean Corpuscular HGB CONC 31.5 g/dL (32.0-36.0); Mean Corpuscular Hemoglobin 30.3 pg (27.0-31.0); Mean Platelet Volume 9.7 fL (7.4-10.4); Platelet Count 273 10x3/uL (130-400); RBC Distribution Width 19.5 % (11.5-14.5); White Blood Cell (WBC) Count 11.8 10x3/uL (4.8-10.8)
[2023-02-27] MEDS: dilTIAZem 30 MG TAB PO SCH ×3 (09:28→20:49)
[2023-02-27] MEDS: Pantoprazole 40 MG VIAL IVP SCH (09:29)
[2023-02-27] MEDS: cefTRIAXone\\ROCEPHIN 2 GM in Sodium Chloride 0.9% 100 ML IVPB SCH (09:29)
[2023-02-27] MEDS: Morphine ER 15 MG TAB PO SCH ×2 (09:29→20:49)
[2023-02-27] MEDS: Dronedarone HCl 400 MG TAB PO SCH ×2 (09:29→15:47)
[2023-02-27 09:50] LABS: Anion Gap 11 mmol/L (10-20); BUN (Urea Nitrogen) 6 mg/dL (8.4-25.7); Calc. Creatinine Clearance 132 mL/min (70-130); Calcium 7.9 mg/dL (7.8-10.44); Carbon Dioxide 28 mmol/L (23-31); Chloride 105 mmol/L (98-107); Estimated GFR 110; Glucose 90 mg/dL (83-110); Potassium 3.9 mmol/L (3.5-5.1); Sodium 140 mmol/L (136-145)
[2023-02-27] MEDS: HYDROcodone/Acetaminophen 5/325 mg Tablet PO PRN (15:40)
[2023-02-27] MEDS ORDERED: Docusate 100 MG CAP PO PRN (18:39)
[2023-02-27] MEDS: Mirtazapine 15 MG Soltab PO SCH (20:49)
[2023-02-28] MEDS: Furosemide 40 MG/4 ML VIAL SLOW IVP SCH (05:21)
[2023-02-28] MEDS: Dronedarone HCl 400 MG TAB PO SCH ×2 (09:37→17:07)
[2023-02-28] MEDS: dilTIAZem 30 MG TAB PO SCH ×3 (09:37→21:52)
[2023-02-28] MEDS: Morphine ER 15 MG TAB PO SCH ×2 (09:38→21:53)
[2023-02-28] MEDS: cefTRIAXone\\ROCEPHIN 2 GM in Sodium Chloride 0.9% 100 ML IVPB SCH (09:39)
[2023-02-28] MEDS ORDERED: Gabapentin 300 MG CAP PO SCH (21:00)
[2023-02-28] MEDS: Apixaban 5 MG TAB PO SCH (21:52)
[2023-02-28] MEDS: Mirtazapine 15 MG Soltab PO SCH (21:52)
[2023-03-01] MEDS: Furosemide 40 MG/4 ML VIAL SLOW IVP SCH (05:34)
[2023-03-01 06:05] LABS: #Basophils 0.1 thou/uL (0.0-0.2); #Eosinphils 0.2 thou/uL (0.0-0.7); #Monocytes 0.7 thou/uL (0.11-0.59); #Neutrophils 8.7 thou/uL (1.40-6.50); %Basophils 0.6 % (0.0-1.0); %Eosinophils 1.5 % (0.0-10.0); %Monocytes 6.1 % (0.0-10.0); %Neutrophils 81.4 % (42.0-75.0); Hematocrit 34.5 % (42.0-52.0); Hemoglobin 10.7 g/dL (14.0-18.0); Mean Corpuscular Hemoglobin 30.1 pg (27.0-31.0); Mean Corpuscular Volume 96.9 fl (78.0-98.0); Mean Platelet Volume 9.5 fL (7.4-10.4); Platelet Count 243 10x3/uL (130-400); RBC Distribution Width 18.6 % (11.5-14.5); Red Blood Cell (RBC) Count 3.56 mill/uL (4.70-6.10); White Blood Cell (WBC) Count 10.6 10x3/uL (4.8-10.8)
[2023-03-01 06:22] LABS: Anion Gap 12 mmol/L (10-20); BUN (Urea Nitrogen) 7 mg/dL (8.4-25.7); Calc. Creatinine Clearance 138 mL/min (70-130); Calcium 7.6 mg/dL (7.8-10.44); Carbon Dioxide 26 mmol/L (23-31); Chloride 106 mmol/L (98-107); Estimated GFR 112; Glucose 89 mg/dL (83-110); Potassium 3.8 mmol/L (3.5-5.1); Sodium 140 mmol/L (136-145)
[2023-03-01 08:33] VITALS: TEMP 97.6
[2023-03-01] MEDS: Morphine ER 15 MG TAB PO SCH (08:58)
[2023-03-01] MEDS: Apixaban 5 MG TAB PO SCH (08:58)
[2023-03-01] MEDS: dilTIAZem 30 MG TAB PO SCH ×2 (08:58→16:31)
[2023-03-01] MEDS: Dronedarone HCl 400 MG TAB PO SCH ×2 (08:58→16:31)
[2023-03-01] MEDS: cefTRIAXone\\ROCEPHIN 2 GM in Sodium Chloride 0.9% 100 ML IVPB SCH (08:59)
[2023-03-01] MEDS ORDERED: Multivitamin W/ Minerals 1 TAB PO SCH (09:00)
[2023-03-01] MEDS ORDERED: Non-Formulary Item 1 EACH (Zinc Gluconate [Zinc] 50 MG Tablet) PO SCH (09:00)
[2023-03-01] MEDS ORDERED: Ascorbic Acid 500 mg Chewable Tablet PO SCH (09:00)
[2023-03-01 13:50] VITALS: BP 119/73
== END 2023-03-01 17:44 | DRG 380 ==
LOC: ERS 23:44 → T4-A 02-25 02:47
PROVIDERS: ADMIT Internal Medicine; ATTEND Family Medicine
PROC: 0DJ08ZZ Inspection of Upper Intestinal Tract, Via Natural or Artificial Opening Endoscopic (ICD-10-PCS; principal; 2023-02-25)
PROC: 30233N1 Transfusion of Nonautologous Red Blood Cells into Peripheral Vein, Percutaneous Approach (ICD-10-PCS; 2023-02-26)
DX: K22.11 Ulcer of esophagus with bleeding (principal); E43 Unspecified severe protein-calorie malnutrition; K55.069 Acute infarction of intestine, part and extent unspecified; J90 Pleural effusion, not elsewhere classified; I82.890 Acute embolism and thrombosis of other specified veins; D62 Acute posthemorrhagic anemia; C25.9 Malignant neoplasm of pancreas, unspecified; I38 Endocarditis, valve unspecified; I74.8 Embolism and thrombosis of other arteries; R78.81 Bacteremia; R64 Cachexia; K92.0 Hematemesis; Z51.5 Encounter for palliative care; Z66 Do not resuscitate; I05.9 Rheumatic mitral valve disease, unspecified; R10.9 Unspecified abdominal pain; K44.9 Diaphragmatic hernia without obstruction or gangrene; L05.91 Pilonidal cyst without abscess; D63.8 Anemia in other chronic diseases classified elsewhere; I48.0 Paroxysmal atrial fibrillation; R60.1 Generalized edema; B95.4 Other streptococcus as the cause of diseases classified elsewhere; Z88.0 Allergy status to penicillin; Z79.899 Other long term (current) drug therapy; Z68.21 Body mass index [BMI] 21.0-21.9, adult; Z80.0 Family history of malignant neoplasm of digestive organs
CPT/HCPCS: 36415; 36430; 51702; 74177; 80048; 80053; 81001; 83690; 84145; 84484; 85025; 85610; 86850; 86900; 86901; 87040; 93005; 96374; 96375; 97139; C9113; J0696; J1940; J2250; J2270; J2405; J2704; J3010; J3480; J3490; P9016; Q0162; Q9967